=== PATIENT | female | born 1940 | race Caucasian/White ===

== ENCOUNTER 2019-09-05 08:14 | Outpatient (CLI) | payer MEDICARE ==
[2019-09-05] MEDS ORDERED: FLUT15.815 NAS (09:43)
[2019-09-05] MEDS ORDERED: ASCO500T8 PO (09:43)
[2019-09-05] MEDS ORDERED: PANT40TA5 PO (09:43)
[2019-09-05] MEDS ORDERED: CALC500T93 PO (09:43)
[2019-09-05] MEDS ORDERED: SODI1PAC12 NAS (09:43)
[2019-09-05] MEDS ORDERED: ATOR40TA78 PO (09:43)
[2019-09-05] MEDS ORDERED: POLY17PO5 PO (09:43)
[2019-09-05] MEDS ORDERED: AMLO2.5T5 PO (09:43)
[2019-09-05] MEDS ORDERED: MULT-672 PO (09:43)
[2019-09-05] MEDS ORDERED: PRAM0.125 PO (09:43)
[2019-09-05] MEDS ORDERED: CHOL10003 PO (09:43)
[2019-09-05] MEDS ORDERED: LACT1CAP35 PO (09:43)
[2019-09-05] MEDS ORDERED: CALC625T23 PO (09:43)
[2019-09-05] MEDS ORDERED: LORA-633 PO (09:43)
[2019-09-05] MEDS ORDERED: FISH1CAP PO (09:43)
== END 2019-09-05 23:59 | disposition home or self-care (01) ==
LOC: STAR 08:14
PROVIDERS: ATTEND Obstetrics & Gynecology Female Pelvic Medicine and Reconstructive Surgery
DX: Z01.818 Encounter for other preprocedural examination (principal); N39.3 Stress incontinence (female) (male); N81.2 Incomplete uterovaginal prolapse
CPT/HCPCS: 93005

== ENCOUNTER 2019-09-09 09:27 | Day surgery (SDC) | payer MEDICARE ==
[~2019-09-09] VITALS: Ht 156.2 cm; Wt 58.9 kg
[~2019-09-09 09:27] MED LIST: AMLO2.5T5 PO; ASCO500T8 PO; ATOR40TA78 PO; BUPIVACAINE/PF-EPI 0.25% 1:200K ONE; CALC500T93 PO; CALC625T23 PO; CHOL10003 PO; FISH1CAP PO; FLUT15.815 NAS; GENTAMICIN 80 MG/2 ML ONE; LACT1CAP35 PO; LORA-633 PO; MULT-672 PO; PANT40TA5 PO; POLY17PO5 PO; PRAM0.125 PO; SODI1PAC12 NAS; VANCOMYCIN 500 MG ONE
[2019-09-09 09:54] VITALS: BP 149/82
[2019-09-09] MEDS ORDERED: LACTATED RINGERS 1,000 ML IV ONE (09:55)
[2019-09-09] MEDS ORDERED: CHLORHEXIDINE 15 ML UDC MM STA (09:55)
[2019-09-09] MEDS ORDERED: LIDOCAINE-MPF 1%, 2ML INFIL STA (09:55)
[2019-09-09] MEDS ORDERED: LIDOCAINE-MPF 1%, 2ML ONE (09:58)
[2019-09-09] MEDS ORDERED: CHLORHEXIDINE 15 ML UDC ONE (09:59)
[2019-09-09] MEDS ORDERED: FENTANYL PF 250 MCG/5ML ONE (11:36)
[2019-09-09] MEDS ORDERED: GABAPENTIN 300 MG CAPSULE ONE ×2 (11:47)
[2019-09-09] MEDS ORDERED: ACETAMINOPHEN 500 MG TABLET ONE ×2 (11:47)
[2019-09-09] MEDS ORDERED: FENTANYL PF 100 MCG/2ML IV PRN (12:30)
[2019-09-09] MEDS ORDERED: PROMETHAZINE 25 MG/ML, 1ML IV PRN (12:30)
[2019-09-09] MEDS ORDERED: hydrALAzine 20 MG/ML, 1ML IV PRN (12:30)
[2019-09-09] MEDS ORDERED: LABETALOL 5MG/ML, 20ML IV PRN (12:30)
[2019-09-09] MEDS ORDERED: HYDROmorphone 2 MG/ML, 1ML IVPush PRN (12:30)
[2019-09-09] MEDS ORDERED: HALOPERIDOL 5 MG/ML IV PRN (12:30)
[2019-09-09] MEDS ORDERED: ALBUTEROL SULFATE 2.5 MG/3 ML NPPB PRN (12:30)
[2019-09-09] MEDS ORDERED: OXYcodone 5 MG/5 ML ORAL.SOL UDC PO PRN (12:30)
[2019-09-09] MEDS ORDERED: PROPOFOL 10 MG/ML, 20ML ONE (13:50)
[2019-09-09] MEDS ORDERED: CEFAZOLIN 1,000 MG ONE (13:50)
[2019-09-09] MEDS ORDERED: ROCURONIUM 10MG/ML,5ML ONE (13:50)
[2019-09-09] MEDS ORDERED: NEOSTIGMINE 1 MG/ML, 10ML ONE (13:50)
[2019-09-09] MEDS ORDERED: SUCCINYLCHOLINE 20 MG/ML, 10ML ONE (13:50)
[2019-09-09] MEDS ORDERED: GLYCOPYRROLATE 0.2MG/1ML, 5ML ONE (13:50)
[2019-09-09] MEDS ORDERED: ONDANSETRON 2MG/ML, 2ML ONE (13:50)
[2019-09-09] MEDS ORDERED: DEXAMETHASONE 4 MG/ML, 1ML ONE (13:50)
[2019-09-09] MEDS ORDERED: SUGAMMADEX 200 MG/2 ML IVPush ONE (13:51)
[2019-09-09] MEDS ORDERED: FENTANYL PF 100 MCG/2ML ONE (14:24)
[2019-09-09] MEDS ORDERED: OXYcodone 5 MG/5 ML ORAL.SOL UDC ONE (14:24)
== END 2019-09-09 17:00 | disposition home or self-care (01) ==
LOC: OUT 09:27
PROVIDERS: ATTEND Obstetrics & Gynecology Female Pelvic Medicine and Reconstructive Surgery
DX: N81.2 Incomplete uterovaginal prolapse (principal); Z11.59 Encounter for screening for other viral diseases; N80.0 Endometriosis of uterus; N73.6 Female pelvic peritoneal adhesions (postinfective); N39.46 Mixed incontinence; Z79.891 Long term (current) use of opiate analgesic; Z79.899 Other long term (current) drug therapy; Z90.49 Acquired absence of other specified parts of digestive tract; Z98.890 Other specified postprocedural states
CPT/HCPCS: 57265; 57288; 58552; 88307; C1771; J0690; J1100; J1580; J2405; J2704; J3010; J3370; J7120; U0001; J2710; J0330